=== PATIENT | male | born 1950 | race Caucasian/White ===

== ENCOUNTER → 2018-05-07 | Outpatient (CLI) | payer MEDICARE | END | disposition home or self-care (01) | LOC: PCVCCLINIC 13:51 | PROVIDERS: ATTEND Internal Medicine Cardiovascular Disease | DX: R06.09 Other forms of dyspnea (principal); I10 Essential (primary) hypertension; Z72.0 Tobacco use | CPT/HCPCS: 93005; G0463 ==

== ENCOUNTER → 2018-05-18 | Outpatient (CLI) | payer MEDICARE ==
[~2018-05-18] MED LIST: REGADENOSON 0.4 MG/5 ML DISP.SYRIN. IV ONE
--- NOTE | 2018-05-18 12:19 | PCVCIMAG ---
APPROVED REPORT Study performed: 05/18/2018 09:23:31 EXAM: Comprehensive 2D, Doppler, and color-flow Echocardiogram Patient Location: Echo lab Status: routine BSA: 1.88 HR: 50 bpmBP: 130/80 mmHg Rhythm: NSR Other Information Study Quality: Good Risk Factors: Cardiac Risk Factors: HTN, Smoking Indications Hypertension/HDD Pre op Surgery Clearance 2D Dimensions IVSd: 12.07 (7-11mm)LVOT Diam: 22.07 (18-24mm) LVDd: 51.49 mm PWd: 12.70 (7-11mm)Ascending Ao: 35.06 (22-36mm) LVDs: 35.50 (25-40mm) Left Atrium: 42.70 (27-40mm) Aortic Root: 34.48 mm LV Single Plane 4CH: 53.94 % LV Single Plane 2CH: 62.70 % Biplane EF: 58.4 % Volumes Left Atrial Volume (Systole) Single Plane 4CH: 55.30 mLSingle Plane 2CH: 58.87 mL LA ESV Index: 33.00 mL/m2 Aortic Valve AoV Peak Saman.: 1.58 m/s AO Peak Gr.: 9.95 mmHgLVOT Max P.80 mmHg LVOT Max V: 1.40 m/s APRIL Vmax: 3.39 cm2 Mitral Valve E/A Ratio: 0.8 MV Decel. Time: 240.25 ms MV E Max Saman.: 0.83 m/s MV A Saman.: 1.05 m/s IVRT: 148.79 ms TDI E/Lateral E': 9.22E/Medial E': 11.86 Medial E' Saman.: 0.07 m/s Lateral E' Saman.: 0.09 m/s Pulmonary Vein P Vein S: 0.69 m/sP Vein A: 0.29 m/s P Vein D: 0.51 m/sP Vein A Dur.: 121.1 msec P Vein S/D Ratio: 1.35 Left Ventricle The left ventricle is normal size. There is normal LV segmental wall motion. There is normal left ventricular wall thickness. Left ventricular systolic function is normal. The left ventricular ejection fraction is within the normal range. LVEF is 55-60%. Grade I - abnormal relaxation pattern. Right Ventricle The right ventricle is normal size. The right ventricular systolic function is normal. Atria The left atrium size is normal. The right atrium size is normal. Aortic Valve The aortic valve is normal in structure. No aortic regurgitation is present. There is no aortic valvular stenosis. Mitral Valve The mitral valve is normal in structure. Mild mitral regurgitation. No evidence of mitral valve stenosis. Tricuspid Valve The tricuspid valve is normal in structure. There is no tricuspid valve regurgitation noted. Pulmonic Valve The pulmonary valve is normal in structure. There is no pulmonic valvular regurgitation. Great Vessels The aortic root is normal in size. IVC is normal in size and collapses >50% with inspiration. Pericardium There is no pericardial effusion. <Conclusion> The left ventricle is normal size. There is normal left ventricular wall thickness. Left ventricular systolic function is normal. The right ventricle is normal size. The left atrium size is normal. The aortic valve is normal in structure. Mild mitral regurgitation. There is no tricuspid valve regurgitation noted.
--- NOTE | 2018-05-18 12:49 | PCVCIMAG ---
APPROVED REPORT Imaging Protocol: Rest Tc-99m/Stress Tc-99m 1 day Study performed: 05/18/2018 10:41:58 Indication: BURNHAM, Abn EKG, Pre OP Patient Location: Out-Patient Stress Nurse: Jhoana Osorio RN, Helen Sweeney RN PR Tech:Patrick HuynhJOSEE Ht: 5 ft 6 in Wt: 174 lbs BSA: 1.88 m2 HR: 52 bpm BP: 159/87 mmHg BMI: 28.08 Rhythm: Sinus Bradycardia, Nonspecific ST abnormality Medical History Medical History: Age, HTN, Former Smoker Medications: Amlodipine Allergies: No known drug allergies Pretest Chest Pain Characteristics: No chest pain Exercise History: Sedentary Resting Data Rest SPECT myocardial perfusion imaging was performed in supine position 45 minutes following the intravenous injection of 10.6 mCi of Tc-99m Sestamibi. Time of rest injection: 1000 Date: 05/18/2018 Administration Route: IV Administration Site: Right Arm Pharmacologic Stress Pharmacologic stress test was performed by injecting Regadenoson 0.4 mg IV push over 10-15 seconds immediately followed by the intravenous injection of 32 mCi of Tc-99m Sestamibi. Time of stress injection: 1115 Date: 05/18/2018 Administration Route: IV Administration Site: Right Arm Gated Stress SPECT was performed 45 minutes after stress injection. The images were gated to evaluate regional wall motion and calculate left ventricular ejection fraction. Stress Test Details Stress Test: Pharmacologic stress testing performed using 0.4 mg of regadenoson per 5 mL given IV over 10 seconds. Reason for pharmacologic stress test: Activity Intolerance. HRMax Heart Rate (APMHR): 151 bpm Resting HR: 52 bpmTarget HR (85% APMHR): 128 bpm Max HR Achieved: 70 bpm % of APMHR: 46 Recovery HR: 61 bpm BP Resting BP: 159/87 mmHg Max BP: 123/71 mmHg Recovery BP: 142/80 mmHg ECG Resting ECG: Sinus Bradycardia, nonspecific ST-T abnormalities Stress ECG: Sinus Rhythm, nonspecific ST-T abnormalities ST Change: Non-ischemic Arrhythmia: PVC's Recovery ECG: Sinus Rhythm, nonspecific ST-T abnormalities Clinical Reason for Termination: Completed protocol Stress Symptoms: Abdominal Discomfort, Dyspnea Symptoms resolved with caffeine. Study Quality Study: Good Artifact: Moderate Diaphragmatic artifact Study Data Post stress, the left ventricular ejection was 49%.. SSS: 3 SRS: 6 SDS: 0 TID = 0.96. Perfusion There is a medium area of moderately reduced uptake in the basal and apical segments of the inferior wall which is seen on the stress images as well as the resting images. This area thickens and moves normally and is most consistent with attenuation artifact. Wall Motion Normal left ventricular wall motion. Nuclear Conclusion ECG Findings: negative for ischemia Clinical Findings: non-diagnostic Nuclear Findings: negative for ischemia Exercise Capacity: not assessed Left Ventricular Function: normal This study is of low probability for inducible ischemia or prior infarct. Normal global and segmental LV systolic function. Artifact: Moderate Diaphragmatic artifact
== END | disposition home or self-care (01) ==
LOC: PCVCIMAG 13:28
PROVIDERS: ATTEND Internal Medicine Cardiovascular Disease
DX: Z01.818 Encounter for other preprocedural examination (principal); I10 Essential (primary) hypertension; F17.200 Nicotine dependence, unspecified, uncomplicated; R94.31 Abnormal electrocardiogram [ECG] [EKG]
CPT/HCPCS: 78452; 93017; 93306; A9500; G0463; J2785

== ENCOUNTER → 2018-06-01 | Outpatient (CLI) | payer MEDICARE ==
--- NOTE | 2018-06-01 10:42 | PCVCIMAG ---
EXAM: AORTOILIAC DUPLEX INDICATION: Palpable abdominal fullness. FINDINGS: AORTA: Suprarenal aorta measures maximum diameter of 2.9 cm. There is not a fusiform infrarenal aortic aneurysm. The infrarenal aorta measures maximum diameter of 2.6 cm. No aortic stenosis. RIGHT COMMON ILIAC ARTERY: Maximum diameter is 1.4 cm. No significant stenosis. RIGHT EXTERNAL ILIAC ARTERY: No significant stenosis. LEFT COMMON ILIAC ARTERY: Maximum diameter is 1.4 cm. No significant stenosis. LEFT EXTERNAL ILIAC ARTERY: No significant stenosis. IMPRESSION: No abdominal aortic aneurysm. No aortoiliac stenosis seen. LOC:[id number]
== END | disposition home or self-care (01) ==
LOC: PCVCIMAG 07:45
PROVIDERS: ATTEND Internal Medicine
DX: I77.3 Arterial fibromuscular dysplasia (principal); R09.89 Other specified symptoms and signs involving the circulatory and respiratory systems
CPT/HCPCS: 93978